=== PATIENT | female | born 1960 | race Caucasian/White ===

== ENCOUNTER 2019-01-24 09:34 | Outpatient (CLI) | payer BC ==
--- NOTE | 2019-01-24 15:46 | RAD ---
CHEST TWO VIEWS: 01/24/2019 FINDINGS: The heart is normal in size, and the lungs are clear. No infiltrate or effusion is seen. The medias tinum appears normal. Some areas in the lung apices are obscured by overlying ribs. IMPRESSION: No significant findings. POS: HOME
== END 2019-01-24 09:35 | disposition home or self-care (01) ==
LOC: BURRAD 09:34
PROVIDERS: ATTEND Family Medicine
DX: Z01.818 Encounter for other preprocedural examination (principal)
CPT/HCPCS: 71046

== ENCOUNTER 2022-08-22 21:20 | Emergency (ER) | payer BC ==
[2022-08-22 22:24] LABS: Anion Gap 11 mmol/L (10-20); BUN (Urea Nitrogen) 10 mg/dL (9.8-20.1); Calc. Creatinine Clearance 0 mL/min (70-130); Calcium 9.5 mg/dL (7.8-10.44); Carbon Dioxide 26 mmol/L (23-31); Chloride 105 mmol/L (98-107); Estimated GFR 71; Glucose 99 mg/dL (80-115); Potassium 4.1 mmol/L (3.5-5.1); Sodium 138 mmol/L (136-145)
== END 2022-08-22 22:55 | disposition home or self-care (01) ==
LOC: BURERS 21:20
DX: R51.9 Headache, unspecified (principal); R03.0 Elevated blood-pressure reading, without diagnosis of hypertension
CPT/HCPCS: 36415; 80048; 99284